=== PATIENT | female | born 1965 | race Caucasian/White ===

== ENCOUNTER 2018-12-13 00:02 | Emergency (ER) | payer MEDICAID, OTHER ==
[~2018-12-13] VITALS: Ht 157.5 cm; Wt 72.0 kg
[~2018-12-13 00:02] MED LIST: HYDR-4383 PO; LISI10TA4 PO
[2018-12-13 00:10] VITALS: BP 161/96
[2018-12-13] MEDS ORDERED: dexamethasone 4mg/ml inj IM SCH (01:15)
[2018-12-13] MEDS ORDERED: triamcinolone acetonide 40mg/ml inj IM ONE (01:15)
== END 2018-12-13 02:35 | disposition home or self-care (01) ==
LOC: ER 00:02
DX: L23.7 Allergic contact dermatitis due to plants, except food (principal); F12.90 Cannabis use, unspecified, uncomplicated; Z79.899 Other long term (current) drug therapy
CPT/HCPCS: 96372; 99283; J1100; J3301

== ENCOUNTER 2019-08-06 06:54 | Day surgery (SDC) | payer MEDICAID ==
[2019-07-30 14:02] LABS: BASOPHILS % (AUTO) 0.3 % (0-1); EOSINOPHILS # (AUTO) 0.1 X10'3 (0-0.9); EOSINOPHILS % (AUTO) 1.4 % (0-6); LYMPHOCYTES # (AUTO) 1.6 X10'3 (1.1-4.8); LYMPHOCYTES % (AUTO) 23.1 % (21-51); MEAN CORPUSCULAR HEMOGLOBIN 29.5 PG (27.0-31.0); MEAN CORPUSCULAR HGB CONC 33.9 g/dL (33.0-36.5); MEAN CORPUSCULAR VOLUME 87.1 FL (78-98); MEAN PLATELET VOLUME 7.3 FL (7.4-10.4); MONOCYTES # (AUTO) 0.6 X10'3 (0-0.9); NEUTROPHILS # (AUTO) 4.6 X10'3 (1.8-7.7); NEUTROPHILS % (AUTO) 66.2 % (42-75); PRE OP HEMATOCRIT 42.7 % (35.0-45.0); PRE OP HEMOGLOBIN 14.5 g/dL (12.0-16.0); PRE OP PLATELET COUNT 312 X10'3 (140-440); RED CELL DISTRIBUTION WIDTH 13.5 % (11.5-14.5)
[2019-07-30 14:10] LABS: ALBUMIN 3.6 G/DL (3.4-5.0); ALBUMIN/GLOBULIN RATIO 0.9 (1.1-1.5); ALKALINE PHOSPHATASE 91 IU/L (46-116); BLOOD UREA NITROGEN 23 MG/DL (7-18); BUN/CREATININE RATIO 32.4 (6.6-38.0); CALCIUM 8.9 MG/DL (8.5-10.1); CHLORIDE 105 MMOL/L (99-107); CREATININE 0.71 MG/DL (0.40-0.90); PRE OP ALT 34 U/L (30-65); PRE OP ANION GAP 4 (8-16); PRE OP AST 18 U/L (10-37); PRE OP BILIRUB, TOTAL 0.7 MG/DL (0.0-1.0); PRE OP GLUCOSE 111 MG/DL (70-104); PRE OP POTASSIUM 3.6 MMOL/L (3.4-5.1); PRE OP SODIUM 141 MMOL/L (135-145); TOTAL PROTEIN 7.4 G/DL (6.4-8.2); eGFR 86 ML/MIN
[2019-08-06] VITALS (7 sets, daily range): BP systolic 115–130; BP diastolic 69–81
[~2019-08-06] VITALS: Ht 156.2 cm; Wt 73.0 kg
[~2019-08-06 06:54] MED LIST changes: +BUPIVAcaine/PF 2.5mg/ml (0.25%) 10ml vial ONE; -HYDR-4383 PO; -LISI10TA4 PO; +NO HOME MEDS; +cefazolin/dext.iso 2gm/100ml 100 ML IV ONE; +famotidine 20mg tablet PO ONE; +ringers solution, lacted 1,000 ML IV SCH
[2019-08-06] MEDS ORDERED: ringers solution, lacted 1,000 ML IV SCH (07:17)
[2019-08-06] MEDS ORDERED: morphine 4 MG/ML inj SYRINge IV PRN (07:20)
[2019-08-06] MEDS ORDERED: hydrALAZINE 20mg/ml inj. IV PRN (07:20)
[2019-08-06] MEDS ORDERED: ondansetron/PF 4mg/2ml inj IV PRN (07:20)
[2019-08-06] MEDS ORDERED: labetalol 20mg/4ml (5mg/ml) syringe IV PRN (07:20)
[2019-08-06] MEDS ORDERED: fentaNYL/PF 50MCG/1 ML 2ML syringe IV PRN ×2 (07:20)
[2019-08-06] MEDS ORDERED: morphine 2 MG/ML inj. syringe IV PRN (07:20)
[2019-08-06] MEDS ORDERED: LIDOcaine 0.5% (5mg/ml) 50ml vial ONE (07:20)
[2019-08-06] MEDS ORDERED: ketorolac trometh. 30mg/ml inj. ONE (09:16)
[2019-08-06] MEDS ORDERED: MIDAZolam 5mg/5ml vial ONE (09:16)
[2019-08-06] MEDS ORDERED: fentaNYL/PF 50MCG/1 ML 2ML syringe ONE (09:16)
--- NOTE | 2019-08-06 11:33 | NUR ---
Received from OR via , accompanied by Anesthesiologist CAMILO and report given by Anesthesiolgist. AWAKE IN NO RESP DISTRESS SKIN WARM AND DRY HOB AND RUE ELEVATED FINGERS WARM PINK GOOD CAP REFILL AND MOVEMENT. NO CO PAIN, DSG DI. ICE TO RT THUMB.
[2019-08-06] MEDS ORDERED: BUPIVAcaine/PF 2.5mg/ml (0.25%) 10ml vial ONE (11:37)
--- NOTE | 2019-08-06 12:33 | NUR ---
AWAKE VS WNL NO CO PAIN, DSG DI, MOVES FINGERS, FINGERS WARM PINK GOOD CAP REFILL. ICE TO WRIST/THUMB, TOLERATES LIQUIDS. DISCH INSTR GIVEN TO PT AND UNDERSTOOD. HOME WITH FRIEND. HAS PAIN SCRIPT AT HOME.
== END 2019-08-06 12:33 | disposition home or self-care (01) ==
LOC: PAS 06:54
PROVIDERS: ATTEND Orthopaedic Surgery Hand Surgery
DX: M18.11 Unilateral primary osteoarthritis of first carpometacarpal joint, right hand (principal); F17.200 Nicotine dependence, unspecified, uncomplicated; Z72.89 Other problems related to lifestyle; Z79.899 Other long term (current) drug therapy; Z98.890 Other specified postprocedural states; F17.210 Nicotine dependence, cigarettes, uncomplicated
CPT/HCPCS: 25447; 26480; 36415; 80053; 82948; 85025; 93005; J1885; J2001; J2250; J3010; J3490; J7120; A4215; A4618; A7000

== ENCOUNTER 2019-08-08 17:58 | Emergency (ER) | payer MEDICAID ==
[~2019-08-08] VITALS: Ht 154.9 cm; Wt 80.0 kg
[~2019-08-08 17:58] MED LIST changes: -BUPIVAcaine/PF 2.5mg/ml (0.25%) 10ml vial ONE; -cefazolin/dext.iso 2gm/100ml 100 ML IV ONE; -famotidine 20mg tablet PO ONE; -ringers solution, lacted 1,000 ML IV SCH
[2019-08-08 18:04] VITALS: BP 168/85
--- NOTE | 2019-08-08 18:47 | NUR ---
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 SPLINT APPLIED.
== END 2019-08-08 18:56 | disposition home or self-care (01) ==
LOC: ER 17:59
DX: G89.18 Other acute postprocedural pain (principal); M25.531 Pain in right wrist; F12.90 Cannabis use, unspecified, uncomplicated
CPT/HCPCS: 29125; 73110; 99284

== ENCOUNTER 2019-08-10 02:57 | Emergency (ER) | payer MEDICAID ==
[~2019-08-10] VITALS: Ht 154.9 cm; Wt 79.1 kg
[2019-08-10 03:04] VITALS: BP 164/96
== END 2019-08-10 03:38 | disposition home or self-care (01) ==
LOC: ER 02:59
DX: Z46.89 Encounter for fitting and adjustment of other specified devices (principal); F12.90 Cannabis use, unspecified, uncomplicated; Z98.890 Other specified postprocedural states
CPT/HCPCS: 29125; 99283

== ENCOUNTER 2020-10-25 19:36 | Emergency (ER) | payer MEDICAID ==
[~2020-10-25] VITALS: Ht 152.4 cm; Wt 55.5 kg
[2020-10-25 20:15] VITALS: BP 121/81
[2020-10-25] MEDS ORDERED: AMOX-117 PO (21:05)
[2020-10-25] MEDS ORDERED: TETanus/Pertussis (Acell)/Diphther VAC/PF (Tdap-Adult) 0.5ml syringe IMVAC ONE (21:05)
[2020-10-25] MEDS ORDERED: amox tr/potassium clavulanate 875/125mg TAB PO ONE (21:05)
== END 2020-10-25 21:18 | disposition home or self-care (01) ==
LOC: ER 19:36
DX: S91.332A Puncture wound without foreign body, left foot, initial encounter (principal); W22.8XXA Striking against or struck by other objects, initial encounter; Y93.89 Activity, other specified; Y92.89 Other specified places as the place of occurrence of the external cause; Y99.8 Other external cause status
CPT/HCPCS: 90471; 90715; 99283